=== PATIENT | female | born 1945 | race Caucasian/White ===

== ENCOUNTER → 2016-09-15 | Outpatient (CLI) | payer OTHER ==
--- NOTE | 2016-09-15 14:16 | DI ---
LEFT SHOULDER, 09/15/2016 1:20 PM: Clinical History: Left shoulder pain. Previous Exam: None at this facility. 4 views are submitted. There is no acute soft tissue, osseous, or joint abnormality. On the glenoid f chacho projection, there is a bony spur projecting from the anterior margin of the acromion. There is m ild narrowing of the glenohumeral joint space. The remainder of the exam is normal. The visualized po rtions of the left lung including the apex are normal. There is a rudimentary left first rib or this may represent a cervical rib. There is osteoporosis. Readin. Mild narrowing of the glenohumeral joint space is noted. There is a bony spur along the anterior margin of the acromion. 2. There is a rudimentary left first rib or this represents a cervical rib. 3. Osteoporosis.
--- NOTE | 2016-09-15 19:39 | DI ---
LUMBAR SPINE SERIES, 09/15/2016 2:04 PM: Clinical History: Acute right-sided low back pain without sciatica Previous Exam: None at this facility. 3 upright routine views are submitted. The vertebral bodies are of normal height and size. There is d isc space narrowing from L1-2 through L5-S1. There is a grade 1 reverse spondylolisthesis at L3-4 and a grade 1 spondylolisthesis at L4-5. The spinous processes between L3 and L5 are transfixed with met allic plates on each side of those spinous processes. Severe degenerative arthritic disease is presen t from L2-3 through L5-S1. Both SI joints are normal. Readin. Diffuse disc space narrowing from L1-2 through L5-S1 with degenerative arthritic changes of the a pophyseal joints between L2-3 through L5-S1. 2. There is a minimal grade 1 reverse spondylolisthesis at L3-4 and a grade 1 spondylolisthesis at L 4-5. The spinous processes between L3 and L5 are in mobile on by metallic plates position on each luther e of the spinous processes.
== END ==
LOC: ORTHO 13:41
PROVIDERS: ATTEND Orthopaedic Surgery
DX: M25.512 Pain in left shoulder (principal); M54.5 Low back pain; M43.16 Spondylolisthesis, lumbar region; M75.42 Impingement syndrome of left shoulder
CPT/HCPCS: 72110; 73030

== ENCOUNTER → 2016-09-20 | Outpatient (CLI) | payer OTHER | LOC: MMPC 09:00 | PROVIDERS: ATTEND Nurse Practitioner Family | DX: Z12.4 Encounter for screening for malignant neoplasm of cervix (principal); Z85.3 Personal history of malignant neoplasm of breast; Z78.0 Asymptomatic menopausal state | CPT/HCPCS: G0101; G0439; G0463 ==

== ENCOUNTER → 2016-10-11 | Outpatient (CLI) | payer OTHER ==
--- NOTE | 2016-10-13 10:34 | DI ---
BREAST TOMOSYNTHESIS DIG B/L, MAMMO DIAGNOSTIC B/L,10/11/2016 1:27 PM: Clinical History: Dense breasts and prior breast surgery. Previous Exam: November 01, 2010, ultrasound breast performed November 01, 2010 Findings: Routine CC and MLO views are obtained as well as breast tomosynthesis demonstrating postsurgical briones ges within the right upper-outer breast. This demonstrated some scarring and architectural distortion on breast tomosynthesis. There are extremely dense fibroglandular elements which limit evaluation. Computer-aided diagnostics were also applied. Postsurgical changes are seen within the right axilla. Dense calcifications are also noted. Impression: No mammographic evidence of malignancy. BIRADS: 2: Benign findings Recommendations: Annual screening. Note: Breast examination has been discussed and encouraged, and the patient informed to return if the re is any new palpable abnormality in the interval between screening. Overall imaging assessment: Benign findings.
== END ==
LOC: MAMMO 13:19 → EDSTATUS 13:30
PROVIDERS: ATTEND Nurse Practitioner Family
DX: Z85.3 Personal history of malignant neoplasm of breast (principal); Z98.890 Other specified postprocedural states
CPT/HCPCS: G0204; G0279

== ENCOUNTER → 2017-01-17 | Outpatient (CLI) | payer OTHER ==
[2017-01-17 13:10] LABS: SERUM ALBUMIN 4.2 g/dL (3.5-4.8)
== END ==
LOC: LAB 13:04
PROVIDERS: ATTEND Internal Medicine Rheumatology
DX: R94.5 Abnormal results of liver function studies (principal); Z79.899 Other long term (current) drug therapy
CPT/HCPCS: 36415; 80076

== ENCOUNTER → 2017-01-17 | Outpatient (CLI) | payer OTHER ==
[2017-01-17 13:10] LABS: SERUM ALBUMIN 4.2 g/dL (3.5-4.8)
--- NOTE | 2017-01-18 15:47 | DI ---
HISTORY: Asymptomatic post menopausal patient. Screening. PREVIOUS EXAM: None at this facility. TECHNIQUE: 3D Quantitative CT (QCT) Bone Mineral Densitometry: FINDINGS: The survey scans are normal. Low dose scans are obtained of the lumbar spine and sampling is obtained through the midbodies of L1 and L2. The average volumetric bone mineral density (BMD) of the lumbar spine is 165 mg/cm3. This value corresponds to a volumetric T-score of 0.13 and Z-score of 3.0 as assessed by this BMD software. Volumetric 3D QCT and areal DEXA T-scores and Z-scores are not directly equivalent. Using the [employer]'s (ACR) volumetric QCT trabecular spine BMD conversion table that is closely equivalent to the areal WHO diagnostic categories, this patient falls into the category of normal bone mineral density. CT X-Ray Absorptiometry (CTXA) Hip Bone Mineral Densitometry: Low dose scans are obtained through the hips for assessment of bone mineral density (BMD) and T-score s and Z-scores of the left hip. Total hip BMD: 0.622 mg/cm2 T-score: -2.6 Z-score: Femoral neck BMD: 0.67 mg/cm2 T-score: -1.13 Z-score: NOTE: T-scores of the spine and hip exhibit discordant readings approximately 40% of the time in britt luated patients. Changes in BMD determined either by volumetric QCT or areal DEXA are more reliable i n assessment of change in a patient's BMD status rather than changes in T-scores. The CTXA hip CT bon e mineral density measurements and the resultant T-scores and Z-scores are exact hip DEXA scan equiva lents. The femoral neck T-score can be used in the WHO's FRAX program for assessing an untreated jeyson ent's 10 year fracture risk. IMPRESSION: 1. Normal bone mineral density of the lumbar spine. 2. Osteoporosis of the left hip.
== END ==
LOC: CT 12:46
PROVIDERS: ATTEND Nurse Practitioner Family
DX: Z78.0 Asymptomatic menopausal state (principal); Z13.820 Encounter for screening for osteoporosis; Z79.899 Other long term (current) drug therapy; F17.200 Nicotine dependence, unspecified, uncomplicated
CPT/HCPCS: 36415; 77078; 80076

== ENCOUNTER → 2017-01-30 | Outpatient (CLI) | payer OTHER | LOC: MMPC 10:00 | PROVIDERS: ATTEND Orthopaedic Surgery | DX: M25.512 Pain in left shoulder (principal); M75.42 Impingement syndrome of left shoulder | CPT/HCPCS: 99213 ==

== ENCOUNTER → 2017-02-02 | Outpatient (CLI) | payer OTHER ==
--- NOTE | 2017-02-02 14:08 | DI ---
MRI UP EXTREMITY JNT W/O CN,02/02/2017 12:56 PM: Clinical History: Left shoulder pain for one and half years. Previous Exam: Plain films performed September 15, 2016 Findings: Multiplanar MR images are obtained through the left shoulder without contrast. Bony alignment is anatomic. No fractures are seen. Marrow signal is preserved. There are minimal dege nerative changes of the left acromioclavicular joint. The acromion process demonstrates some lateral downsloping with some osteophytes involving the lateral most margin of the acromion. The major vascular flow voids are unremarkable. There is some increased marrow signal and cystic change involving the lateral greater tubercle anteri santino. Limited evaluation of the glenoid labrum demonstrates no evidence of labral tear. The major vascular flow voids are unremarkable. Rotator cuff: There is some interstitial tearing of the supraspinatus tendon at the myotendinous junc tion. There is also some increased signal involving the distal supraspinatus tendon near its attachme nt on the greater tubercle. The long head of the biceps tendon is well seated within the bicipital groove, and demonstrates a nor mal course and caliber as it passes through the rotator cuff interval. The infraspinatus tendon is normal. The teres minor and subscapularis tendons are normal as well. Impression: Interstitial tearing of the myotendinous junction of the supraspinatus tendon with some mild tendinos is of the distal supraspinatus tendon as well. This is seen in the setting of some cystic changes of the greater tubercle, and some inferiorly projecting osteophytes along the acromion process. Correlat e clinically as this could represent some underlying impingement. Minimal degenerative changes of the acromioclavicular joint.
== END ==
LOC: MRI 12:51
PROVIDERS: ATTEND Orthopaedic Surgery
DX: M25.512 Pain in left shoulder (principal); S46.012A Strain of muscle(s) and tendon(s) of the rotator cuff of left shoulder, initial encounter; M19.012 Primary osteoarthritis, left shoulder
CPT/HCPCS: 73221

== ENCOUNTER → 2017-02-09 | Outpatient (CLI) | payer OTHER | LOC: MMPC 10:00 | PROVIDERS: ATTEND Orthopaedic Surgery | DX: M75.42 Impingement syndrome of left shoulder (principal); M19.012 Primary osteoarthritis, left shoulder; M75.122 Complete rotator cuff tear or rupture of left shoulder, not specified as traumatic | CPT/HCPCS: 99214; G0463 ==

== ENCOUNTER → 2017-03-30 | Outpatient (CLI) | payer OTHER ==
--- NOTE | 2017-03-30 14:48 | DI ---
MRI LUMBAR SPINE W/O CN,03/30/2017 12:57 PM: Clinical History: Low back pain Previous Exam: None at this facility. Findings: Multiplanar MR images are obtained through the lumbar spine without contrast. There is grade 1 anterolisthesis of L4 and L5. There is a normal-appearing spinal cord with the conus at the L1 level. The upper abdomen is unremarkable. Postsurgical changes are seen of the spinous processes which is no t well evaluated on this exam. There is a left-sided hemilaminectomy at the L5 level. There is significant facet arthropathy at the L4/5 level. There is no evidence of spondylolysis nor spondylolisthesis. Paravertebral musculature is unremarkable. Visualized portions of the kidneys are normal. Individual intervertebral disc spaces: L1/2: No significant stenosis. L2/3: There is disc desiccation and a broad-based disc bulge with mild facet hypertrophy contributing to mild bilateral neural foraminal narrowing. L3/4: There is disc desiccation, a broad-based disc bulge and some facet and ligamentum flavum hypert rophy contributing to mild to moderate bilateral neural foraminal narrowing. L4/5: There is grade 1 anterolisthesis with significant facet and ligamentum flavum hypertrophy contr ibuting to moderate to severe right and moderate left lateral recess stenosis. There is moderate cent ral canal stenosis as well. L5/S1: There is disc desiccation, a left-sided hemilaminectomy and some facet and ligamentum flavum h ypertrophy contributing to moderate right and mild left neural foraminal narrowing. Impression: L2/3: There is disc desiccation and a broad-based disc bulge with mild facet hypertrophy contributing to mild bilateral neural foraminal narrowing. L3/4: There is disc desiccation, a broad-based disc bulge and some facet and ligamentum flavum hypert rophy contributing to mild to moderate bilateral neural foraminal narrowing. L4/5: There is grade 1 anterolisthesis with significant facet and ligamentum flavum hypertrophy contr ibuting to moderate to severe right and moderate left lateral recess stenosis. There is moderate cent ral canal stenosis as well. L5/S1: There is disc desiccation, a left-sided hemilaminectomy and some facet and ligamentum flavum h ypertrophy contributing to moderate right and mild left neural foraminal narrowing.
== END ==
LOC: MRI 12:53
PROVIDERS: ATTEND Neurological Surgery
DX: M54.5 Low back pain (principal); M51.16 Intervertebral disc disorders with radiculopathy, lumbar region; M51.17 Intervertebral disc disorders with radiculopathy, lumbosacral region
CPT/HCPCS: 72148

== ENCOUNTER → 2017-04-03 | Outpatient (CLI) | payer OTHER | LOC: MMPC 09:00 | PROVIDERS: ATTEND Nurse Practitioner Family | DX: I10 Essential (primary) hypertension (principal); E03.9 Hypothyroidism, unspecified; K21.9 Gastro-esophageal reflux disease without esophagitis | CPT/HCPCS: 99214; G0463 ==

== ENCOUNTER → 2017-04-06 | Outpatient (CLI) | payer OTHER ==
[2017-04-06 09:14] LABS: BLOOD UREA NITROGEN 11 mg/dL (7-22); BUN/CREATININE RATIO 15.71 (6-20); CALCIUM 9.9 mg/dL (8.7-10.7); CHOL/HDL RATIO 2.66 RATIO (0-4.0); EST GLOMERULAR FILTRATION > 60 (>60 ml/min/1.73m(2)); HDL CHOLESTEROL 66 mg/dL (40-150); SERUM ALBUMIN 4.1 g/dL (3.5-4.8); SERUM CHOLESTEROL 176 mg/dL (120-200)
== END ==
LOC: LAB 08:22
PROVIDERS: ATTEND Nurse Practitioner Family
DX: I10 Essential (primary) hypertension (principal); E03.9 Hypothyroidism, unspecified
CPT/HCPCS: 36415; 80053; 80061; 84443